=== PATIENT | female | born 1995 | race Caucasian/White ===

== ENCOUNTER 2019-06-14 03:49 | Emergency (ER) | payer SELFPAY ==
[2019-06-14 03:54] VITALS: BP 133/79; PULSE 105; RESP 16; TEMP 36.6; O2SAT 99; BMI 37.2
--- NOTE | 2019-06-14 03:56 | ED_ITS ---
Entered by Dina Stroud, acting as scribe for Angel Salas MD HPI - General Adult General: Chief complaint: General Medical Stated complaint: TICK HEAD STUCK Time Seen by Provider: 06/14/19 03:53 Source: patient Mode of arrival: ambulatory Limitations: no limitations History of Present Illness: HPI narrative: 23 yo f came to the er pov with family for tick head stuck on breast. Onset was today. complaint: tick head on breast Onset (ago): day(s) (today) Severity: mild Relieving factors: none Exacerbating factors: none Associated symptoms: Deny chest pain, dyspnea, headache(s), rash or vomiting Review of Systems Const: Denies: fever or chills Eyes: Denies: change in vision ENMT: Denies: throat pain or mouth pain Card: Denies: chest pain Resp: Denies: shortness of breath GI: Denies: vomiting : Denies: difficulty urinating Musc: Denies: back pain or joint pain Skin/Breast: Denies: rash Neuro: Denies: headache Psych: Denies: depression Endo: Denies: excessive urination Shmuel/Lymph: Denies: easy bruising All/Imm: Denies: hives PFSH ED PFSH: Statuses (acute, chronic, etc) shown below reflect problem list status as previously entered and may not be historically accurate Social History Smoking and tobacco status: never smoked Physical Exam Const: COMMON NORMALS: no apparent distress and healthy appearing HENMT: COMMON NORMALS: normocephalic and external nose normal HEAD & SCALP: normocephalic NOSE: external nose normal and no nasal discharge (nasal dischage) Eye: COMMON NORMALS: PERRL PUPIL: Yes PERRL Neck/C-Spine: COMMON NORMALS: full ROM and no lymphadenopathy Chest: COMMONS NORMALS: inspection of chest normal Resp: COMMON NORMALS: normal respiratory effort and clear to auscultation bilaterally AUSCULTATION: clear to auscultation bilaterally Cardio: COMMON NORMALS: regular rate and regular rhythm RATE: regular rate RHYTHM: regular rhythm GI: COMMON NORMALS: soft to palpation PALPATION: Yes soft Extremity: COMMON NORMALS: normal to inspection, full ROM and normal capillary refill Psych: COMMON NORMALS: mental status grossly normal and cooperative Skin: COMMON NORMALS: no rashes or lesions noted GENERAL SKIN EXAM: no rashes or lesions noted OTHER: insect bite to chest with small embedded head Course Vital Signs: Vital signs: Vital Signs Temperature 98 F 06/14/19 03:54 Pulse Rate 99 06/14/19 04:04 Respiratory Rate 16 06/14/19 04:04 Blood Pressure 133/79 06/14/19 04:04 Pulse Oximetry 98 06/14/19 04:04 MDM - General Adult MDM Narrative: Medical decision making narrative: Patient presents here with a tick bite with a possible embedded head. I was able to remove what look like a possible head of the tick. Patient is well-appearing here and is stable for discharge. She is to return if worsening or has a rash. She is to follow-up with primary care doctor in 3 to 5 days. Discharge Plan Discharge Patient Disposition: Home, Self-Care Clinical Impression: Tick bite Qualifiers: Encounter type: initial encounter Qualified Code(s): W57.XXXA - Bitten or stung by nonvenomous insect and other nonvenomous arthropods, initial encounter Condition: Stable Prescriptions: No Action Propanolol 10 mg PO DAILY RF: 0 Discharge Orders: Discharge Order (Routine); Ordered 06/14/19 Ordered By: Angel Salas Discharge Diet: Advance as tolerated Discharge Activity: Resume usual activity Patient Instructions: Tick Bite (ED) Discharge Date/Time: 06/14/19 04:11 Coding Level of Care Code ED [employer] for [facility]berto Wagoner Exam Problem Focused The documentation recorded by the [employer] Stephanie Lyn, accurately reflects the service I personally performed and the decisions made by , Angel Salas MD
[2019-06-14 04:04] VITALS: BP 133/79; PULSE 99; RESP 16; O2SAT 98
== END 2019-06-14 04:11 | disposition home or self-care (01) ==
LOC: ER 04:12
PROVIDERS: Emergency Provider Emergency Medicine
DX: S20.169A Insect bite (nonvenomous) of breast, unspecified breast, initial encounter (principal); W57.XXXA Bitten or stung by nonvenomous insect and other nonvenomous arthropods, initial encounter
CPT/HCPCS: 99281

== ENCOUNTER 2019-10-23 13:20 | Emergency (ER) | payer SELFPAY ==
[2019-10-23 13:25] VITALS: BMI 33.5
[2019-10-23 13:28] VITALS: BP 110/74; PULSE 89; RESP 18; TEMP 37.1; O2SAT 99
--- NOTE | 2019-10-23 13:40 | W.ED.BACK ---
HPI - Back Pain/Injury General: Chief Complaint: Back Pain/Injury Stated Complaint: back pain Time Seen by Provider: 10/23/19 13:26 History of Present Illness: HPI Narrative: Patient complained about some back pain last days happened after doing some housework has not improved took some Tylenol helped a little bit denies any spasms palpable problems her stomach are breathing problems MD elicited complaint: back pain Pertinent past history: prior back pain Onset (ago): day(s) Timing: constant Severity: moderate Similar Symptoms Previously: Yes Quality: dull Location: lumbar spine Radiation: none Exacerbating factors: movement and lifting Relieving factors: immobilization Context: while lifting and turning/twisting Associated symptoms: Reports no associated symptoms; Deny abdominal pain, chills, fever(s), nausea or vomiting Review of Systems Const: Denies: fever(s), chills or body aches Eyes: Denies: change in vision or blurry vision ENMT: Denies: throat pain or nasal congestion Card: Denies: chest pain or dyspnea on exertion Resp: Denies: dyspnea, productive cough or non-productive cough GI: Denies: abdominal pain, nausea or vomiting Musc: Reports: back pain; Denies: extremity pain Skin/Breast: Denies: rash Neuro: Denies: headache(s) Psych: Denies: anxiety or depression Shmuel/Lymph: Denies: easy bruising PFS ED PFSH: Social History Smoking and tobacco status: never smoked Female Reproductive History: Date of last menstrual period: 10/02/19 Physical Exam Const: COMMON NORMALS: no acute distress, average body habitus and patient oriented x3 HENMT: COMMON NORMALS: normocephalic HEAD & SCALP: normal to inspection and normocephalic FACE & SINUS: normal facial exam Eye: COMMON NORMALS: conjunctivae normal GENERAL EYE: appearance normal, both eyes and all related structures CONJUNCTIVA: Yes conjunctivae normal Neck/C-Spine: COMMON NORMALS: no JVD Chest: COMMONS NORMALS: normal inspection of the chest Resp: COMMON NORMALS: normal respiratory effort and clear to auscultation bilaterally AUSCULTATION: clear to auscultation bilaterally Cardio: COMMON NORMALS: no JVD, regular rate and regular rhythm RATE: regular rate RHYTHM: regular rhythm GI: COMMON NORMALS: Normal to inspection, nondistended, normoactive bowel sounds present Back/Pelvis: LUMBAR SPINE/LOWER BACK: Yes straight leg raise positive right (Bilateral straight leg positive for pain more in right) Straight leg raise positive details right: at 30 degrees Extremity: COMMON NORMALS: normal to inspection and full ROM Neuro: COMMON NORMALS: patient oriented x3 Course Vital Signs: Vital signs: Vital Signs Temperature 98.7 F 10/23/19 13:28 Pulse Rate 89 10/23/19 13:28 Respiratory Rate 18 10/23/19 13:28 Blood Pressure 110/74 10/23/19 13:28 Pulse Oximetry 99 10/23/19 13:28 Discharge Plan Discharge Prescriptions: No Action Propanolol 10 mg PO DAILY RF: 0 Coding Level of Care Code ED [employer] for [employer]
== END 2019-10-23 13:54 | disposition home or self-care (01) ==
LOC: ER 13:47
PROVIDERS: Emergency Provider Nurse Practitioner Family
DX: M54.9 Dorsalgia, unspecified (principal)
CPT/HCPCS: 12345; 99281; 99282

== ENCOUNTER 2019-11-01 20:27 | Emergency (ER) | payer SELFPAY ==
[2019-11-01 20:55] VITALS: PULSE 110; RESP 18; TEMP 36.2; O2SAT 95; BMI 33.5
--- NOTE | 2019-11-01 21:24 | ED_ITS ---
HPI - Skin/Abscess/Foreign Bdy General: Chief complaint: Skin/Abscess/Foreign Body Stated complaint: rash Time Seen by Provider: 11/01/19 21:11 History of Present Illness: HPI narrative: Patient has bites on her legs x2 weeks and been exposed to multiple fleas from her dog and also has rashes been up around her eyes and on her arm that itches complaint: rash and insect bite/sting Onset (ago): day(s) Tetanus up to date: unsure Location: generalized Severity: mild Associated symptoms: Reports no associated symptoms and itching; Deny chills, fever(s), nausea or vomiting Review of Systems 2 Const: Denies: fever(s), chills or body aches Eyes: Denies: change in vision or blurry vision ENMT: Denies: throat pain or nasal congestion Card: Denies: chest pain or dyspnea on exertion Resp: Denies: dyspnea, productive cough or non-productive cough GI: Denies: abdominal pain, nausea or vomiting Musc: Denies: extremity pain Skin/Breast: Reports: rash, pruritus and other (Fleabites) Neuro: Denies: headache(s) Psych: Denies: anxiety or depression Shmuel/Lymph: Denies: easy bruising PFSH ED PFSH: Social History Smoking and tobacco status: never smoked Female Reproductive History: Date of last menstrual period: 11/01/19 Physical Exam Const: COMMON NORMALS: no acute distress, average body habitus and patient oriented x3 HENMT: COMMON NORMALS: normocephalic HEAD & SCALP: normal to inspection and normocephalic FACE & SINUS: normal facial exam Eye: COMMON NORMALS: conjunctivae normal GENERAL EYE: appearance normal, both eyes and all related structures CONJUNCTIVA: Yes conjunctivae normal Neck/C-Spine: COMMON NORMALS: no JVD Chest: COMMONS NORMALS: normal inspection of the chest Resp: COMMON NORMALS: normal respiratory effort and clear to auscultation bilaterally AUSCULTATION: clear to auscultation bilaterally Cardio: COMMON NORMALS: no JVD, regular rate and regular rhythm RATE: regular rate RHYTHM: regular rhythm GI: COMMON NORMALS: Normal to inspection, nondistended, normoactive bowel sounds present Extremity: COMMON NORMALS: normal to inspection and full ROM Neuro: COMMON NORMALS: patient oriented x3 Skin: OTHER: Has papules scattered across her legs with redness around the strongly resemble flea bites also has a was on her arms and neck and then also has maculopapular rash around her eyes on her arms and right wrist that resemble contact dermatitis Course Vital Signs: Vital signs: Vital Signs Temperature 97.2 F L 11/01/19 20:55 Pulse Rate 110 H 11/01/19 20:55 Respiratory Rate 18 11/01/19 20:55 Pulse Oximetry 95 11/01/19 20:55 Discharge Plan Discharge Patient Disposition: Home, Self-Care Clinical Impression: Animal flea bite Contact dermatitis Qualifiers: Contact dermatitis type: irritant Contact dermatitis trigger: non-food plants Qualified Code(s): L24.7 - Irritant contact dermatitis due to plants, except food Condition: Stable Prescriptions: New Medrol (Ziggy) 4 mg tablets,dose pack See Rx Instructions .ROUTE .COMPLEX Qty: 21 RF: 0 No Action tramadol 50 mg tablet 50 mg PO Q6H PRN (Reason: Pain) RF: 0 Discharge Orders: Discharge Order (Routine); Ordered 11/01/19 Ordered By: Lebron Rivas Discharge Diet: Usual diet Discharge Activity: Resume usual activity Patient Instructions: Contact Dermatitis (ED), Insect Bite or Sting (ED) Activity Restrictions/Additional Instructions: Follow-up with medical provider as directed. Take medications as prescribed. Return to the ER or your medical provider if condition worsens. Please read and understand discharge instructions. If any questions ask please. Can take Benadryl tonight for itching. Get dog treated for fleas. Coding Level of Care Code ED [employer] Representative [employer] for Norberto Wagoner
== END 2019-11-01 21:37 | disposition home or self-care (01) ==
PROVIDERS: Emergency Provider Nurse Practitioner Family
DX: L24.7 Irritant contact dermatitis due to plants, except food (principal); T14.8XXA Other injury of unspecified body region, initial encounter; W57.XXXA Bitten or stung by nonvenomous insect and other nonvenomous arthropods, initial encounter
CPT/HCPCS: 12345; 99281

== ENCOUNTER 2019-11-09 09:48 | Emergency (ER) | payer SELFPAY ==
--- NOTE | 2019-11-09 09:57 | W.ED.EAR ---
HPI - Ear Problem General: Chief complaint: Ear Stated complaint: RIGHT EAR INJURY Time Seen by Provider: 11/09/19 09:52 Source: patient Mode of arrival: ambulatory Limitations: no limitations History of Present Illness: HPI Narrative: Patient comes in today for injury to the right auricle of the ear. Patient had a piercing that was yanked out of ear by accident. Patient appears well. Patient appears in no acute distress. Injury to the upper aspect of the right ear notes no active bleeding. Location: right ear Review of Systems General: Reports: 10 or more systems reviewed and unremarkable except in HPI and below Skin/Breast: Reports: other (skin injury right ear) [facility] ED PFSH: Social History Smoking and tobacco status: current every day smoker Female Reproductive History: Date of last menstrual period: 11/01/19 Physical Exam Const: COMMON NORMALS: no acute distress and patient oriented x3 GENERAL APPEARANCE: cooperative HENMT: COMMON NORMALS: normocephalic, TM's normal bilaterally and Normal external nose present HEAD & SCALP: normal to inspection and normocephalic NOSE: Normal external nose present TYMPANIC MEMBRANE: TM's normal bilaterally MOUTH: Normal oral and palatal mucosa present THROAT: posterior oropharynx normal Eye: GENERAL EYE: appearance normal, both eyes and all related structures Neck/C-Spine: COMMON NORMALS: full ROM Chest: COMMONS NORMALS: normal inspection of the chest Resp: COMMON NORMALS: normal respiratory effort EFFORT & INSPECTION: Yes able to speak in complete sentences Cardio: COMMON NORMALS: regular rate and regular rhythm RATE: regular rate RHYTHM: regular rhythm GI: COMMON NORMALS: non-tender : COMMON NORMALS: Yes no CVA tenderness BLADDER/KIDNEY EXAM: Yes no CVA tenderness Back/Pelvis: COMMON NORMALS: no CVA tenderness and thoracic and lumbar spine normal to inspection Extremity: COMMON NORMALS: normal to inspection Neuro: COMMON NORMALS: patient oriented x3 and moves all extremities Psych: COMMON NORMALS: mental status grossly normal and cooperative Skin: GENERAL SKIN EXAM: other (1 cm laceration to the auricle of the right ear. Superficial. No cartilage involvement noted.) Procedures Laceration Laceration 1: Site: other (Right ear auricle) Side (If applicable): right Size (cm): 1 Description: irregular Depth: simple, single layer Pre-repair: wound explored Skin layer closed with: other (Skin adhesive) Course Vital Signs: Vital signs: Vital Signs Temperature 98.6 F 11/09/19 09:58 Pulse Rate 97 11/09/19 09:58 Respiratory Rate 16 11/09/19 09:58 Blood Pressure 105/88 11/09/19 09:58 Pulse Oximetry 96 11/09/19 09:58 MDM - Ear MDM Narrative: Medical decision making narrative: Patient comes in for injury to the auricle of the right ear. On exam patient has a superficial laceration to the crest of the right auricle. No obvious cartilage injury was noted. TM was intact. No other significant injury was noted. Differential diagnosis includes but not limited to need for prophylaxis vaccines, laceration, contusion. Wound was repaired with skin adhesive. Post procedure instructions were reviewed. Patient reported understanding and need for follow-up. Discharge Plan Discharge Patient Disposition: Home, Self-Care Clinical Impression: Laceration of ear region Qualifiers: Encounter type: initial encounter Laterality: right Qualified Code(s): S01.311A - Laceration without foreign body of right ear, initial encounter Condition: Stable Prescriptions: New cephalexin 500 mg capsule 500 mg PO BID 7 Days Qty: 14 RF: 0 No Action Medrol (Ziggy) 4 mg tablets,dose pack See Rx Instructions .ROUTE .COMPLEX Qty: 21 RF: 0 tramadol 50 mg tablet 50 mg PO Q6H PRN (Reason: Pain) RF: 0 Discharge Orders: Discharge Order (Routine); Ordered 11/09/19 Ordered By: Lino Fuentes Discharge Diet: Usual diet Discharge Activity: Increase activity as tolerated Patient Instructions: Skin Adhesive Care (ED) Activity Restrictions/Additional Instructions: Keep wound clean and dry. Activity as tolerated. It is important to keep the wound dry for the next 2 days. Take antibiotics as directed. Return to the ER for increased redness swelling or fever. Follow-up with primary care in 1 week for recheck. Coding Level of Care Code ED [employer] Child[employer] for Norberto Wagoner Exam Comprehensive
[2019-11-09 09:58] VITALS: BP 105/88; PULSE 97; RESP 16; TEMP 37; O2SAT 96; BMI 33.5
== END 2019-11-09 10:17 | disposition home or self-care (01) ==
PROVIDERS: Emergency Provider Nurse Practitioner Family
DX: S01.311A Laceration without foreign body of right ear, initial encounter (principal); X58.XXXA Exposure to other specified factors, initial encounter; F17.210 Nicotine dependence, cigarettes, uncomplicated
CPT/HCPCS: 12011; 12345; 99282

== ENCOUNTER 2020-02-14 10:37 | Emergency (ER) | payer SELFPAY ==
[2020-02-14 11:06] VITALS: BP 100/68; PULSE 90; RESP 18; TEMP 36.6; O2SAT 96; BMI 34.8
[2020-02-14 13:37] LABS: Basophils % 0.5 %; Eosinophils # 0.1 10^3/uL (0.0-0.8); Eosinophils % 1.8 %; Hematocrit 48.1 % (37.0-47.0); Hemoglobin 14.1 g/dL (11.5-15.3); Lymphocytes # 2.2 10^3/uL (0.8-4.8); Lymphocytes % 35.1 %; Mean Corpuscular HGB Conc 29.3 g/dL (30.0-36.0); Mean Corpuscular Hemoglobin 27.7 pg (28.0-34.0); Mean Corpuscular Volume 94.5 fL (81-99); Mean Platelet Volume 10.3 fL (7.4-10.4); Monocytes # 0.3 10^3/uL (0.2-0.9); Monocytes % 4.4 %; Neutrophils # 3.55 10^3/uL (1.8-7.7); Nucleated Red Blood Cells % 0 %; Platelet Count 225 10^3/cmm (130-400); Red Blood Count 5.09 10^6/uL (4.1-5.3); Red Cell Distribution Width 13.2 % (12.1-15.1); White Blood Count 6.1 10^3/uL (4.0-10.0)
[2020-02-14 13:58] LABS: Alanine Aminotransferase 11 U/L (0-33); Albumin Level 3.8 g/dL (3.5-5.2); Alkaline Phosphatase 66 IU/L (35-105); Anion Gap 13.4 (5-19); Aspartate Amino Transferase 13 U/L (0-32); Blood Urea Nitrogen 10 mg/dL (6-20); Calcium 8.7 mg/dL (8.5-10.5); Carbon Dioxide 22 mmol/L (22-29); Chloride 106 mmol/L (98-107); Globulin 3.3 g/dL (1.3-4.6); Glomerular Filtration Rate 102.8 mL/min (90-130); Glucose 107 mg/dL (65-115); Lipase 28 U/L (13-60); Osmolality Calculated 280 mOsm/kg (285-295); Potassium 4.4 mmol/L (3.5-5.1); Sodium 137 mmol/L (136-145); Total Bilirubin 0.5 mg/dL (0.15-1.2); Total Protein 7.1 g/dL (6.6-8.7)
[2020-02-14 14:07] LABS: HCG, Serum Qual Negative (Negative)
== END 2020-02-14 15:11 | disposition left against medical advice (07) ==
LOC: ER 10:50
PROVIDERS: Family Medicine
DX: Z53.21 Procedure and treatment not carried out due to patient leaving prior to being seen by health care provider (principal)
CPT/HCPCS: 80053; 83690; 84703; 85025; 99281; 99282

== ENCOUNTER 2020-11-12 00:34 | Emergency (ER) | payer SELFPAY ==
[2020-11-12 01:05] VITALS: BP 113/77; PULSE 88; RESP 16; TEMP 36.8; O2SAT 96; BMI 33.5
--- NOTE | 2020-11-12 02:05 | W.ED.GENADLT ---
HPI - General Adult General: Chief complaint: General Medical Stated complaint: forehead hurts Time Seen by Provider: 11/12/20 02:02 History of Present Illness: HPI narrative: 25-year-old female comes in with complaints of headache. Patient reports frontal headache. Patient has had previous headaches since having a concussion about 5 years ago. Patient reports this is normal for her headaches. Associated symptoms: Reports headache(s) Review of Systems General: Reports: 10 or more systems reviewed and unremarkable except in HPI and below Neuro: Reports: headache(s) PFSH ED PFSH: Social History Smoking and tobacco status: current every day smoker Female Reproductive History: Date of last menstrual period: 11/01/19 Physical Exam Const: COMMON NORMALS: no acute distress and patient oriented x3 GENERAL APPEARANCE: cooperative HENMT: COMMON NORMALS: normocephalic and Normal external nose present HEAD & SCALP: normal to inspection and normocephalic NOSE: Normal external nose present MOUTH: Normal oral and palatal mucosa present THROAT: posterior oropharynx normal Eye: GENERAL EYE: appearance normal, both eyes and all related structures Neck/C-Spine: COMMON NORMALS: full ROM Lymph: LYMPHATIC: no lymphadenopathy noted Chest: COMMONS NORMALS: normal inspection of the chest Resp: COMMON NORMALS: normal respiratory effort EFFORT & INSPECTION: Yes able to speak in complete sentences Cardio: COMMON NORMALS: regular rate and regular rhythm RATE: regular rate RHYTHM: regular rhythm GI: COMMON NORMALS: non-tender Extremity: COMMON NORMALS: normal to inspection Neuro: COMMON NORMALS: patient oriented x3 and moves all extremities Psych: COMMON NORMALS: mental status grossly normal and cooperative Skin: COMMON NORMALS: no rashes or lesions noted GENERAL SKIN EXAM: no rashes or lesions noted Course Vital Signs: Vital signs: Vital Signs Temperature 98.2 F 11/12/20 01:05 Pulse Rate 81 11/12/20 02:06 Respiratory Rate 17 11/12/20 02:06 Blood Pressure 114/87 11/12/20 02:06 Pulse Oximetry 97 11/12/20 02:06 MDM - General Adult MDM Narrative: Medical decision making narrative: Patient comes in for complaints of headache. Patient has had previous headaches in the past. After suffering a concussion about 5 years ago. Patient reports this is similar to routine headaches. Patient was given a dose of ketorolac 30 mg and 25 mg of promethazine for her headache. Patient was encouraged to drink plenty of fluids and follow-up with primary care. 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
[2020-11-12 02:06] VITALS: BP 114/87; PULSE 81; RESP 17; O2SAT 97
[2020-11-12] MEDS: ketorolac 30 mg/mL INJ IM (02:45)
[2020-11-12] MEDS: promethazine 25 mg/mL SDV 1 mL IM (02:46)
[2020-11-12 02:47] VITALS: BP 131/99; PULSE 79; RESP 17; TEMP 36.5; O2SAT 98
== END 2020-11-12 02:48 | disposition home or self-care (01) ==
PROVIDERS: Emergency Provider Nurse Practitioner Family
DX: R51.9 Headache, unspecified (principal); F17.210 Nicotine dependence, cigarettes, uncomplicated
CPT/HCPCS: 96372; 99283; J1885; J2550